=== PATIENT | female | born 1940 | race Caucasian/White ===

== ENCOUNTER 2019-11-04 17:06 | Emergency (ER) | payer MEDICARE, BC ==
--- NOTE | 2019-11-04 17:12 | EDM.PDOC ---
ED HPI GENERAL MEDICAL PROBLEM - General Stated Complaint: Alcohol Intox Time Seen by Provider: 11/04/19 17:10 Source of Information: Reports: Patient History Limitations: Reports: No Limitations - History of Present Illness INITIAL COMMENTS - FREE TEXT/NARRATIVE: Patient presented to the ED because of alcohol intoxication. She is agitated and uncooperative. She doesn't want any IVF,Labs done. She otherwise is medically stable - Related Data Allergies Allergy/AdvReac Type Severity Reaction Status Date / Time Penicillins Allergy Hives Verified 07/04/13 11:36 Home Meds: Home Meds . [Unable to Verify Home Med List] 07/04/13 [History] Past Medical History Cardiovascular History: Reports: Hypertension Gastrointestinal History: Reports: GERD Musculoskeletal History: Reports: Osteoarthritis - Past Surgical History Other Musculoskeletal Surgeries/Procedures:: left leg surg with rods and plate in it, ankle fracture ED ROS GENERAL - Review of Systems Review Of Systems: See Below Constitutional: Reports: No Symptoms HEENT: Reports: No Symptoms Respiratory: Reports: No Symptoms Cardiovascular: Reports: No Symptoms Endocrine: Reports: No Symptoms GI/Abdominal: Reports: No Symptoms : Reports: No Symptoms Musculoskeletal: Reports: No Symptoms Skin: Reports: No Symptoms Neurological: Reports: No Symptoms ED EXAM, GENERAL - Physical Exam Exam: See Below Exam Limited By: No Limitations General Appearance: Alert, No Apparent Distress Ears: Normal External Exam, Normal Canal, Hearing Grossly Normal GI/Abdominal: Normal Bowel Sounds, Soft, Non-Tender, No Organomegaly, No Distention, No Abnormal Bruit Back Exam: Normal Inspection, Full Range of Motion Extremities: Normal Inspection, Normal Range of Motion Neurological: Alert, Oriented, CN II-XII Intact, Normal Cognition Psychiatric: Normal Affect, Normal Mood Skin Exam: Warm, Intact Course - Vital Signs Text/Narrative:: labs not done patient refused Departure - Departure Time of Disposition: 16:45 Disposition: Against Medical Advice 07 Condition: Good Clinical Impression: Alcohol intoxication - Discharge Information
--- NOTE | 2019-11-04 18:07 | EDM.PDOC ---
ED HPI GENERAL MEDICAL PROBLEM - General Chief Complaint: Laceration Stated Complaint: fall Time Seen by Provider: 11/04/19 17:10 Source of Information: Reports: Patient History Limitations: Reports: No Limitations - History of Present Illness INITIAL COMMENTS - FREE TEXT/NARRATIVE: Patient presented to the ED because she was a little bit dizzy fell and landed on her lft rib. She c/o left rib pain which is worse with breathing. No other injuries sustained after the fall. Mouth Pain Score (Numeric/FACES): 6 - Related Data Allergies Allergy/AdvReac Type Severity Reaction Status Date / Time Penicillins Allergy Hives Verified 11/04/19 17:16 Home Meds: Home Meds Alendronate Sodium [Fosamax] 70 mg PO MO 11/04/19 [History] Fluticasone Propionate [Flonase] 2 puff NASBOTH BEDTIME 11/04/19 [History] Levothyroxine 125 mcg PO ACBREAKFAST 11/04/19 [History] Losartan [Cozaar] 50 mg PO DAILY 11/04/19 [History] Pantoprazole Sodium [Protonix] 40 mg PO DAILY 11/04/19 [History] amLODIPine [Norvasc] 2.5 mg DAILY 11/04/19 [History] Past Medical History Cardiovascular History: Reports: Hypertension, Other (See Below) Other Cardiovascular History: hx irreg HR @ times Gastrointestinal History: Reports: GERD Genitourinary History: Reports: Other (See Below) Other Genitourinary History: weak bladder 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 Musculoskeletal History: Reports: Fracture, Osteoarthritis Other Musculoskeletal History: hx fx R ankle, L leg Endocrine/Metabolic History: Reports: Hypothyroidism - Infectious Disease History Infectious Disease History: Reports: Chicken Pox, Measles, Mumps - Past Surgical History HEENT Surgical History: Reports: Adenoidectomy, Cataract Surgery, Tonsillectomy GI Surgical History: Reports: Colonoscopy, EGD Musculoskeletal Surgical History: Reports: ORIF Other Musculoskeletal Surgeries/Procedures:: left leg surg with rods and plate in it, ankle fracture, ORIF R ankle Social & Family History - Family History Family Medical History: Noncontributory - Tobacco Use Smoking Status *Q: Never Smoker - Caffeine Use Caffeine Use: Reports: Coffee - Recreational Drug Use Recreational Drug Use: No ED ROS GENERAL - Review of Systems Review Of Systems: See Below Constitutional: Reports: No Symptoms HEENT: Reports: No Symptoms Respiratory: Reports: No Symptoms Cardiovascular: Reports: No Symptoms Endocrine: Reports: No Symptoms GI/Abdominal: Reports: No Symptoms : Reports: No Symptoms Musculoskeletal: Reports: No Symptoms Skin: Reports: No Symptoms Neurological: Reports: No Symptoms ED EXAM, GENERAL - Physical Exam Exam: See Below Exam Limited By: No Limitations General Appearance: Alert, No Apparent Distress Ears: Normal External Exam, Normal Canal, Hearing Grossly Normal Nose: Normal Inspection, Normal Mucosa, No Blood Throat/Mouth: Normal Inspection, Normal Teeth, Normal Gums Head: Atraumatic, Normocephalic, Other (abrasion on the lip, left rib tenderness ) Neck: Normal Inspection, Supple, Non-Tender Respiratory/Chest: No Respiratory Distress, Lungs Clear, Normal Breath Sounds, Other (chest tenderness) Cardiovascular: Normal Peripheral Pulses, Regular Rate, Rhythm GI/Abdominal: Normal Bowel Sounds, Soft, Non-Tender, No Organomegaly, No Distention, No Abnormal Bruit Back Exam: Normal Inspection, Full Range of Motion Extremities: Normal Inspection, Normal Range of Motion Neurological: Alert, Oriented, CN II-XII Intact, Normal Cognition Psychiatric: Normal Affect, Normal Mood Skin Exam: Warm, Intact Course - Vital Signs Text/Narrative:: chest xray-neg left rib xray-neg labs-nl viscous lidocaine applied to abrasions Tdap ibuprofen 40 mg po x1 Last Recorded V/S: Last Vital Signs Temp 36.5 C 11/04/19 17:10 Pulse 115 H 11/04/19 17:10 Resp 18 11/04/19 17:10 BP 144/66 H 11/04/19 17:10 Pulse Ox 98 11/04/19 17:10 - Orders/Labs/Meds Orders: Active Orders 24 hr Category Date Time Status EKG Documentation Completion [RC] ASDIRECTED Care 11/04/19 17:31 Active Ribs 2V w Chest Lt [CR] Stat Exams 11/04/19 17:29 Taken BASIC METABOLIC PANEL,BMP [CHEM] Stat Lab 11/04/19 17:30 Received CBC WITH AUTO DIFF [HEME] Stat Lab 11/04/19 17:30 Received EKG 12 Lead [EK] Routine Ther 11/04/19 17:29 Ordered Meds: Medications Discontinued Medications Generic Name Dose Route Start Last Admin Trade Name Freq PRN Reason Stop Dose Admin Ibuprofen 400 mg 11/04/19 18:12 11/04/19 18:21 Motrin PO 11/04/19 18:13 400 mg ONETIME ONE Administration Lidocaine HCl 15 ml 11/04/19 18:12 11/04/19 18:22 Xylocaine 2% Viscous PO 11/04/19 18:13 15 ml ONETIME ONE Administration Departure - Departure Time of Disposition: 18:30 Disposition: Against Medical Advice 07 Condition: Good Clinical Impression: Alcohol intoxication - Discharge Information Referrals: Silvio Yan MD [Primary Care Provider] - Forms: ED Department Discharge Sepsis Event Note - Evaluation Sepsis Screening Result: No Definite Risk - Focused Exam Vital Signs: Vital Signs Temp Pulse Resp BP Pulse Ox 11/04/19 17:10 36.5 C 115 H 18 144/66 H 98 Date Exam was Performed: 11/04/19 Time Exam was Performed: 18:26 - My Orders Last 24 Hours: My Active Orders 11/04/19 17:29 Ribs 2V w Chest Lt [CR] Stat EKG 12 Lead [EK] Routine 11/04/19 17:30 BASIC METABOLIC PANEL,BMP [CHEM] Stat CBC WITH AUTO DIFF [HEME] Stat 11/04/19 17:31 EKG Documentation Completion [RC] ASDIRECTED - Assessment/Plan Last 24 Hours: My Active Orders 11/04/19 17:29 Ribs 2V w Chest Lt [CR] Stat EKG 12 Lead [EK] Routine 11/04/19 17:30 BASIC METABOLIC PANEL,BMP [CHEM] Stat CBC WITH AUTO DIFF [HEME] Stat 11/04/19 17:31 EKG Documentation Completion [RC] ASDIRECTED
[2019-11-04] MEDS: Ibuprofen 400 MG Tab PO ONE (18:21)
[2019-11-04] MEDS: Lidocaine 2% Viscous Solution 15 ML Cup PO ONE (18:22)
[2019-11-04 19:34] VITALS: BP 131/79; PULSE 109
--- NOTE | 2019-11-05 11:41 | CR ---
INDICATION: Fall, left rib pain lower lateral. LEFT RIBS WITH CHEST: PA view of the chest, with additional 3 views of the left ribs, was obtained 11/04/19 - no comparisons. The heart appeared normal in size and shape. The aorta is tortuous with calcification in the arch. There is some lateral pleural thickening bilaterally, most likely representing pleural fibrosis, which extends into the apical lung on the right. No definite active infiltrate, effusion, contusion or pneumothorax was identified. A moderate dextroconvex scoliosis is noted at the lower middle thoracic spine. No displaced fracture or other definite acute bony abnormality was identified. IMPRESSION: No acute process. MTDD
== END 2019-11-04 19:09 | disposition home or self-care (01) ==
LOC: FB.ED 17:06
DX: S00.511A Abrasion of lip, initial encounter (principal); F10.129 Alcohol abuse with intoxication, unspecified; I10 Essential (primary) hypertension; K21.9 Gastro-esophageal reflux disease without esophagitis; Z79.899 Other long term (current) drug therapy; Z88.0 Allergy status to penicillin; W19.XXXA Unspecified fall, initial encounter
CPT/HCPCS: 36415; 71101-LT; 80048; 85025; 93005; 99284-25; A9270-GY

== ENCOUNTER 2023-10-14 18:33 | Inpatient (IN) | payer MEDICARE, BC ==
[2023-10-14] MEDS: Sodium Chloride 0.9% 1,000 ML IV SCH (20:05)
[2023-10-14 20:08] LABS: BASOPHILS PERCENT AUTO 0.2 % (0.2-1.5); EOSINOPHILS PERCENT AUTO 0.6 % (0.6-8.1); HEMATOCRIT 36.8 % (34.2-48.2); HEMOGLOBIN 12.3 g/dL (11.4-15.5); LYMPHOCYTES ABSOLUTE AUTO 0.6 x10-3/uL (1.0-4.4); LYMPHOCYTES PERCENT AUTO 8.3 % (18.4-52.1); MEAN CORPUSCULAR HEMOGLOBIN 31.4 pg (23.9-33.9); MEAN CORPUSCULAR HGB CONC 33.4 g/dL (31.9-34.8); MEAN CORPUSCULAR VOLUME 93.8 fL (76.7-100.5); MEAN PLATELET VOLUME 8.8 fL (7.1-12.4); MONOCYTES ABSOLUTE AUTO 0.7 x10-3/uL (0.3-1.0); NEUTROPHILS ABSOLUTE AUTO 6.3 x10-3/uL (1.5-6.3); NEUTROPHILS PERCENT AUTO 81.9 % (30.8-76.2); PLATELET COUNT,PLT 274 x10(3)uL (151-488); RED BLOOD CELL COUNT 3.92 x10(6)uL (3.60-5.20); RED CELL DISTRIBUTION WIDTH 13.4 % (12.3-16.5); WHITE BLOOD CELL COUNT,WBC 7.7 x10-3/uL (3.0-10.3)
[2023-10-14 20:12] LABS: BLOOD UREA NITROGEN,BUN 25 mg/dL (7-18); BUN/CREATININE RATIO 31.3 (9-20); CALCIUM 9.3 mg/dL (8.6-10.2); CARBON DIOXIDE,CO2 25 mmol/L (21-32); CHLORIDE,CL 102 mmol/L (100-110); CREATININE 0.8 mg/dL (0.55-1.02); EST CRCL DRUG DOSING (CG) 39.61 mL/min; ESTIMATED GFR 74 mL/min (>60); GLUCOSE RANDOM 123 mg/dL (80-116); POTASSIUM,K 3.9 mmol/L (3.5-5.3); SODIUM,NA 137 mmol/L (135-145)
[2023-10-14 20:26] LABS: A/G RATIO 0.8; ALANINE AMINOTRANSFERASE,ALT 55 U/L (12-36); ALBUMIN 3.3 g/dL (3.2-4.6); ALKALINE PHOSPHATASE 162 IU/L (56-112); ASPARTATE AMNIOTRANSFERASE,AST 58 IU/L (5-25); BILIRUBIN TOTAL 0.3 mg/dL (0.1-1.3); PROTEIN TOTAL,TP 7.3 g/dL (6.0-8.0)
[2023-10-14 20:31] LABS: C-REACTIVE PROTEIN 1.11 mg/dL (<0.50); TROPONIN I 51.5 pg/mL (4.0-60.3)
[2023-10-14 20:50] LABS: INFLUENZA A NAA NEGATIVE (NEGATIVE); INFLUENZA B NAA NEGATIVE (NEGATIVE); RESPIRATORY SYNCYTIAL VIR NAA NEGATIVE (NEGATIVE)
[2023-10-14 21:24] LABS: CORONAVIRUS COVID-19 NAA POSITIVE (NEGATIVE)
[2023-10-14] MEDS ORDERED: Zolpidem 5 MG Tab PO PRN (23:42)
[2023-10-14] MEDS ORDERED: Magnesium Hydroxide 400 MG/5 ML Susp 30 ML Cup PO PRN (23:42)
[2023-10-15 00:19] LABS: APPEARANCE,URINE CLEAR (CLEAR); COLOR,URINE YELLOW (YELLOW); GLUCOSE,URINE NORMAL (NORMAL); PROTEIN,URINE NEGATIVE (NEGATIVE)
[2023-10-15 00:20] LABS: BACTERIA,URINE FEW (NS); BILIRUBIN,URINE NEGATIVE (NEGATIVE); KETONES,URINE NEGATIVE (NEGATIVE); LEUKOCYTE ESTERASE,URINE SMALL (NEGATIVE); NITRITE,URINE NEGATIVE (NEGATIVE); OCCULT BLOOD,URINE MODERATE (NEGATIVE); RBC,URINE 0-5 (0-5); SQUAMOUS EPITHELIAL CELLS,UR FEW (NS,R,O); UROBILINOGEN,URINE NORMAL (NEGATIVE); WBC,URINE 0-5 (0-5)
[2023-10-15] MEDS: D5 1/2 NS w/ 20 mEq/L KCl 1,000 ML IV SCH ×2 (02:02→11:21)
[2023-10-15] MEDS: Enoxaparin 40 MG/0.4 ML Syringe SUBCUT SCH (02:02)
[2023-10-15] MEDS: Ibuprofen 400 MG Tab PO SCH (03:23)
[2023-10-15 06:51] LABS: TSH ULTRASENSITIVE 1.43 IU/mL (0.36-3.74)
[2023-10-15 06:58] LABS: TROPONIN I 295.7 pg/mL (4.0-60.3)
[2023-10-15] MEDS: Acetaminophen 325 MG Tab PO SCH (11:10)
[2023-10-15] MEDS: Pantoprazole 40 MG Tab.CR PO SCH (11:10)
[2023-10-15] MEDS: Levothyroxine 125 MCG Tab PO SCH (11:19)
[2023-10-15] MEDS: amLODIPine 5 MG Tab PO SCH (13:52)
[2023-10-15] MEDS: Iopamidol 755 Mg/ML 100 ML Bottle IV SCH (17:27)
[2023-10-15] MEDS: Aspirin 81 MG Tab.Chew PO ONE (18:17)
[2023-10-15] MEDS: Clopidogrel 75 MG Tab PO ONE (18:18)
[2023-10-15] MEDS: amLODIPine 2.5 MG Tab PO SCH (20:16)
[2023-10-15] MEDS: Losartan 50 MG Tab PO SCH (20:19)
[2023-10-15] MEDS ORDERED: Fluticasone NASAL Spray 16 GM Bottle NASBOTH PRN (21:00)
[2023-10-16 07:20] LABS: HEMOGLOBIN A1C 5.7 % (<5.7)
[2023-10-16 07:27] LABS: A/G RATIO 0.8; ALBUMIN 2.7 g/dL (3.2-4.6); BILIRUBIN TOTAL 0.4 mg/dL (0.1-1.3); BLOOD UREA NITROGEN,BUN 8 mg/dL (7-18); BUN/CREATININE RATIO 11.4 (9-20); CALCIUM 8.1 mg/dL (8.6-10.2); CARBON DIOXIDE,CO2 27 mmol/L (21-32); CHLORIDE,CL 106 mmol/L (100-110); CREATININE 0.7 mg/dL (0.55-1.02); EST CRCL DRUG DOSING (CG) 47.56 mL/min; ESTIMATED GFR 87 mL/min (>60); GLUCOSE RANDOM 106 mg/dL (80-116); POTASSIUM,K 3.9 mmol/L (3.5-5.3); PROTEIN TOTAL,TP 6.2 g/dL (6.0-8.0); SODIUM,NA 139 mmol/L (135-145)
[2023-10-16 07:28] LABS: ALANINE AMINOTRANSFERASE,ALT 47 U/L (12-36); ALKALINE PHOSPHATASE 130 IU/L (56-112); ASPARTATE AMNIOTRANSFERASE,AST 60 IU/L (5-25); CHOLESTEROL HDL 68 mg/dL (40-75); CHOLESTEROL LDL DIRECT 99 mg/dL (60-130); CHOLESTEROL TOTAL 178 mg/dL (50-200); CREATINE KINASE,CK 772 IU/L (60-160); TRIGLYCERIDES 63 mg/dL (25-150)
[2023-10-16] MEDS: Enoxaparin 40 MG/0.4 ML Syringe SUBCUT SCH (08:34)
[2023-10-16] MEDS ORDERED: Non-Formulary Medication 1 Each (Esomeprazole [Nexium] 40 MG Cap) PO SCH (09:00)
[2023-10-16] MEDS ORDERED: Carboxymethylcellulose Sodium 0.5% Ophth Soln 15 ML Bottle EYEBOTH PRN (09:36)
[2023-10-16] MEDS: Clopidogrel 75 MG Tab PO SCH (10:06)
[2023-10-16] MEDS: Aspirin 81 MG Tab.Chew PO SCH (10:06)
[2023-10-18 10:12] VITALS: BP 126/60; PULSE 68
== END 2023-10-18 11:35 | disposition home or self-care (01) | DRG 64 ==
LOC: FB.ED 18:33 → FB.MS 22:04 → OBSVTOIN 10-15 09:05
PROVIDERS: ADMIT Family Medicine; ATTEND Family Medicine
PROC: 8E0ZXY6 Isolation (ICD-10-PCS; principal; 2023-10-15)
DX: I63.81 Other cerebral infarction due to occlusion or stenosis of small artery (principal); M62.82 Rhabdomyolysis; I21.A1 Myocardial infarction type 2; R79.82 Elevated C-reactive protein (CRP); R79.9 Abnormal finding of blood chemistry, unspecified; R74.01 Elevation of levels of liver transaminase levels; U07.1 COVID-19; I35.1 Nonrheumatic aortic (valve) insufficiency; T79.6XXA Traumatic ischemia of muscle, initial encounter; I27.20 Pulmonary hypertension, unspecified; W18.30XA Fall on same level, unspecified, initial encounter; E86.0 Dehydration; W19.XXXA Unspecified fall, initial encounter; I65.01 Occlusion and stenosis of right vertebral artery; Z51.5 Encounter for palliative care; I10 Essential (primary) hypertension; K21.9 Gastro-esophageal reflux disease without esophagitis; M19.90 Unspecified osteoarthritis, unspecified site; E03.9 Hypothyroidism, unspecified; R79.89 Other specified abnormal findings of blood chemistry; Z96.651 Presence of right artificial knee joint; I48.91 Unspecified atrial fibrillation; R94.31 Abnormal electrocardiogram [ECG] [EKG]; Z79.890 Hormone replacement therapy; Z79.899 Other long term (current) drug therapy; Z79.82 Long term (current) use of aspirin; Z98.890 Other specified postprocedural states; Z90.89 Acquired absence of other organs; Z98.49 Cataract extraction status, unspecified eye; Z79.02 Long term (current) use of antithrombotics/antiplatelets; Z88.0 Allergy status to penicillin
CPT/HCPCS: 0241U; 36415; 70496; 70498; 70551; 71046; 73030-RT; 80053; 80061; 81001; 82550; 83036; 83605; 84443; 84484; 85025; 86140; 93005; 93010; 93306; 96360; 96361; 96372; 97161-GP; 97530-GP; 99285; 99285-25; A9270-GY; G0378; J1650; J3480; J7030; Q9967

== ENCOUNTER 2025-02-14 12:27 | Emergency (ER) | payer MEDICARE, BC ==
[2025-02-14 12:38] VITALS: BP 161/70; PULSE 74
[2025-02-14 13:14] LABS: BASOPHILS PERCENT AUTO 0.4 % (0.2-1.5); EOSINOPHILS ABSOLUTE AUTO 0.1 x10-3/uL (0.0-0.8); EOSINOPHILS PERCENT AUTO 2.1 % (0.6-8.1); HEMATOCRIT 31.5 % (34.2-48.2); LYMPHOCYTES ABSOLUTE AUTO 0.9 x10-3/uL (1.0-4.4); LYMPHOCYTES PERCENT AUTO 17.2 % (18.4-52.1); MEAN CORPUSCULAR HEMOGLOBIN 32.3 pg (23.9-33.9); MEAN CORPUSCULAR HGB CONC 34.7 g/dL (31.9-34.8); MEAN CORPUSCULAR VOLUME 92.9 fL (76.7-100.5); MEAN PLATELET VOLUME 9.3 fL (7.1-12.4); MONOCYTES ABSOLUTE AUTO 0.5 x10-3/uL (0.3-1.0); MONOCYTES PERCENT AUTO 9.7 % (4.4-15.7); NEUTROPHILS ABSOLUTE AUTO 3.8 x10-3/uL (1.5-6.3); NEUTROPHILS PERCENT AUTO 70.6 % (30.8-76.2); PLATELET COUNT,PLT 185 x10(3)uL (151-488); RED BLOOD CELL COUNT 3.39 x10(6)uL (3.60-5.20); RED CELL DISTRIBUTION WIDTH 13.8 % (12.3-16.5); WHITE BLOOD CELL COUNT,WBC 5.3 x10-3/uL (3.0-10.3)
[2025-02-14 13:21] LABS: A/G RATIO 0.8; ALANINE AMINOTRANSFERASE,ALT 29 U/L (12-36); ALBUMIN 2.9 g/dL (3.2-4.6); ALKALINE PHOSPHATASE 92 IU/L (56-112); ASPARTATE AMNIOTRANSFERASE,AST 29 IU/L (5-25); BILIRUBIN TOTAL 0.5 mg/dL (0.1-1.3); BLOOD UREA NITROGEN,BUN 43 mg/dL (7-18); BUN/CREATININE RATIO 22.6 (9-20); CALCIUM 8.6 mg/dL (8.6-10.2); CARBON DIOXIDE,CO2 28 mmol/L (21-32); CHLORIDE,CL 106 mmol/L (100-110); CREATININE 1.9 mg/dL (0.55-1.02); ESTIMATED GFR 26 mL/min (>60); GLUCOSE RANDOM 97 mg/dL (80-116); POTASSIUM,K 4.3 mmol/L (3.5-5.3); PROTEIN TOTAL,TP 6.4 g/dL (6.0-8.0); SODIUM,NA 138 mmol/L (135-145)
[2025-02-14 13:22] LABS: C-REACTIVE PROTEIN < 0.50 mg/dL (<0.50); TROPONIN I 10.3 pg/mL (4.0-60.3)
[2025-02-14 13:27] LABS: LIPASE 21 U/L (16-77)
[2025-02-14 13:28] LABS: PRO B-TYPE NATRIUR PEPT,BNPPRO 2274 pg/mL (<=450)
[2025-02-14] MEDS: Alum Hydroxide/Mag Hydroxide 15 ML, Lidocaine 2% 15 ML PO ONE (16:03)
== END 2025-02-14 16:42 | disposition home or self-care (01) ==
LOC: FB.ED 12:27
DX: I13.0 Hypertensive heart and chronic kidney disease with heart failure and stage 1 through stage 4 chronic kidney disease, or unspecified chronic kidney disease (principal); N18.4 Chronic kidney disease, stage 4 (severe); I50.9 Heart failure, unspecified; D64.9 Anemia, unspecified; I48.91 Unspecified atrial fibrillation; K21.9 Gastro-esophageal reflux disease without esophagitis; E03.9 Hypothyroidism, unspecified; Z88.0 Allergy status to penicillin; Z79.899 Other long term (current) drug therapy; Z79.890 Hormone replacement therapy; Z79.82 Long term (current) use of aspirin
CPT/HCPCS: 36415; 71045; 80053; 83690; 83735; 83880; 84484; 85025; 86140; 93005; 93010; 99284; 99285; A9270

== ENCOUNTER 2025-07-18 16:06 | Emergency (ER) | payer MEDICARE, BC ==
[2025-07-18 16:55] LABS: MEAN PLATELET VOLUME 8.3 fL (7.1-12.4); PLATELET COUNT,PLT 266 x10(3)uL (151-488); RED BLOOD CELL COUNT 3.32 x10(6)uL (3.60-5.20); RED CELL DISTRIBUTION WIDTH 13.4 % (12.3-16.5); WHITE BLOOD CELL COUNT,WBC 5.3 x10-3/uL (3.0-10.3)
[2025-07-18 16:57] LABS: BLOOD UREA NITROGEN,BUN 37 mg/dL (7-18); CARBON DIOXIDE,CO2 29 mmol/L (21-32); CHLORIDE,CL 104 mmol/L (100-110); CREATININE 1.9 mg/dL (0.55-1.02); EST CRCL DRUG DOSING (CG) 16.11 mL/min; ESTIMATED GFR 26 mL/min (>60); GLUCOSE RANDOM 97 mg/dL (80-116); POTASSIUM,K 3.5 mmol/L (3.5-5.3); SODIUM,NA 141 mmol/L (135-145)
[2025-07-18 17:03] LABS: A/G RATIO 0.9; ALANINE AMINOTRANSFERASE,ALT 24 U/L (12-36); ASPARTATE AMNIOTRANSFERASE,AST 23 IU/L (5-25); BILIRUBIN TOTAL 0.4 mg/dL (0.1-1.3); PROTEIN TOTAL,TP 5.8 g/dL (6.0-8.0)
[2025-07-18 17:12] LABS: BAND PERCENT MAN 1 % (0-6); LYMPHOCYTES PERCENT MAN 14 % (13-37); MONOCYTES PERCENT MAN 12 % (4-12); SEG NEUTROPHILS PERCENT MAN 73 % (46-82)
[2025-07-18 17:29] LABS: APPEARANCE,URINE CLEAR (CLEAR); GLUCOSE,URINE NORMAL (NORMAL); OCCULT BLOOD,URINE NEGATIVE (NEGATIVE)
[2025-07-18 17:38] LABS: SQUAMOUS EPITHELIAL CELLS,UR OCCASIONAL (NS,R,O)
[2025-07-18 18:15] VITALS: BP 160/52; PULSE 64
[2025-07-21 23:23] LABS: ADENOVIRUS 40/41 PCR Not Detected; ASTROVIRUS PCR Not Detected; CRYPTOSPORIDIUM PCR Not Detected; CYCLOSPORA CAYETANENSIS PCR Not Detected; ENTAMOEBA HISTOLYTICA PCR Not Detected; ENTEROAGGREGATIVE E. COLI PCR Not Detected; ENTEROPATHOGENIC E. COLI PCR Not Detected; ENTEROTOXIGENIC E. COLI PCR Not Detected; GIARDIA LAMBLIA PCR Not Detected; NOROVIRUS GI/GII PCR Not Detected; PLESIOMONAS SHIGELLOIDES PCR Not Detected; ROTAVIRUS A PCR Not Detected; SALMONELLA PCR Not Detected; SAPOVIRUS PCR Not Detected; SHIG/ENTEROINVASIVE E COLI PCR Not Detected; SHIGA TOXIN-PRODUC E. COLI PCR Not Detected; VIBRIO CHOLERAE PCR Not Detected; VIBRIO PCR Not Detected; YERSINIA ENTEROCOLITICA PCR Not Detected
== END 2025-07-18 18:00 | disposition home or self-care (01) ==
LOC: FB.ED 16:06
DX: R19.7 Diarrhea, unspecified (principal); I10 Essential (primary) hypertension; I48.91 Unspecified atrial fibrillation; E03.9 Hypothyroidism, unspecified; Z88.0 Allergy status to penicillin; Z79.890 Hormone replacement therapy; Z79.899 Other long term (current) drug therapy; Z79.01 Long term (current) use of anticoagulants
CPT/HCPCS: 36415; 80053; 81001; 83690; 84484; 85025; 87507; 93005; 93010; 99283; 99284